=== PATIENT | male | born 1985 | race Caucasian/White ===

== ENCOUNTER 2020-05-18 10:08 | Emergency (ER) | payer BC, OTHER ==
--- NOTE | 2020-05-18 11:03 | EDM.PDOC ---
ED HPI GENERAL MEDICAL PROBLEM - General Chief Complaint: Back Pain or Injury Stated Complaint: BACK PAIN Time Seen by Provider: 05/18/20 10:38 Source of Information: Reports: Patient, RN Notes Reviewed - History of Present Illness INITIAL COMMENTS - FREE TEXT/NARRATIVE: 34 yr old male with low back pain. He had a severe episode about a month ago, had been doing better but than had it flair again yesterday. Was doing some light duty work but nothing real strenuous. feels OK at rest, sharp pain with movment. Does not radiate. No nausea, vomiting, fever or chills. Also has what he thinks is a buldging hernia L lower abd that he has had for about 2 yrs. Has not had that evaluated. Took a left over hydrocodone for his back this AM and that is helping. States "nothing else works when it gets more severe like this" Lower Back Pain Score (Numeric/FACES): 4 - Related Data Allergies Allergy/AdvReac Type Severity Reaction Status Date / Time No Known Allergies Allergy Verified 05/18/20 10:29 Home Meds: Home Meds Acetaminophen/HYDROcodone [[place] 325-5 MG] 1 tab PO Q6H PRN #10 tablet 05/18/20 [Rx] Past Medical History - Past Health History Medical/Surgical History: Denies Medical/Surgical History Social & Family History - Tobacco Use Tobacco Use Status *Q: Never Tobacco User Second Hand Smoke Exposure: No - Caffeine Use Caffeine Use: Reports: Coffee - Recreational Drug Use Recreational Drug Use: No ED ROS GENERAL - Review of Systems Review Of Systems: See Below Constitutional: Denies: Fever, Chills, Diaphoresis HEENT: Reports: No Symptoms Respiratory: Reports: No Symptoms Cardiovascular: Reports: No Symptoms GI/Abdominal: Denies: Nausea, Vomiting : Reports: No Symptoms Musculoskeletal: Reports: Back Pain. Denies: Leg Pain Skin: Reports: No Symptoms Neurological: Reports: No Symptoms ED EXAM,LOWER BACK PAIN/INJURY - Physical Exam Exam: See Below General Appearance: Alert, No Apparent Distress Head: Atraumatic Neck: Supple Respiratory/Chest: No Respiratory Distress, Lungs Clear, Normal Breath Sounds Cardiovascular: Regular Rate, Rhythm GI/Abdominal: Soft, Non-Tender, Other (Does have a buldging mass L lower abd just above the groin minimally tender) (Male) Exam: No: Scrotal Swelling Neurological: Alert, No Motor/Sensory Deficits, Oriented x 3 Skin Exam: Warm, Dry, Normal Color Course - Vital Signs Last Recorded V/S: Last Vital Signs Temp 97.8 F 05/18/20 10:26 Pulse 88 05/18/20 10:26 Resp 16 05/18/20 10:26 BP 153/91 H 05/18/20 10:26 Pulse Ox 97 05/18/20 10:26 Departure - Departure Time of Disposition: 10:58 Disposition: Home, Self-Care 01 Condition: Fair Clinical Impression: Hernia Low back strain Qualifiers: Encounter type: initial encounter Qualified Code(s): S39.012A - Strain of muscle, fascia and tendon of lower back, initial encounter - Discharge Information Prescriptions: Acetaminophen/HYDROcodone [[place] 325-5 MG] 1 tab PO Q6H PRN #10 tablet PRN Reason: Pain Instructions: Muscle Strain, [id number] Referrals: PCP,None [Primary Care Provider] - Forms: ED Department Discharge Additional Instructions: Rest back, avoid heavy lifting as best you can. Ibuprofen or aleve 2 to 3 times daily. You may take tylenol in between doses for extra pain relief or hydr ocodone if needed for severe pain. Prescription has been sent electronically to [facility]. Continue to alternate ice and heat. Consider Physical Therapy if not rapidly getting better. Follow up at our [facility] medical clinic for further eval, treatment of your back discomfort as needed. Call [phone] for appointment as needed. Also call the same number for appointment to see Dr Castillo, General Surgeon regarding what appears to be a L sided hernia. Sepsis Event Note (ED) - Evaluation Sepsis Screening Result: No Definite Risk - Focused Exam Vital Signs: Vital Signs Temp Pulse Resp BP Pulse Ox 05/18/20 10:26 97.8 F 88 16 153/91 H 97
== END 2020-05-18 11:10 | disposition home or self-care (01) ==
LOC: JD.ED 10:08
DX: S39.012A Strain of muscle, fascia and tendon of lower back, initial encounter (principal); K46.9 Unspecified abdominal hernia without obstruction or gangrene; X58.XXXA Exposure to other specified factors, initial encounter
CPT/HCPCS: 99283

== ENCOUNTER 2024-02-29 20:10 | Emergency (ER) | payer BC ==
[2024-02-29] MEDS: Lidocaine 1% 10 ML MDV INJECT ONE (21:14)
== END 2024-02-29 22:20 | disposition home or self-care (01) ==
LOC: JD.ED 20:10
DX: S01.112A Laceration without foreign body of left eyelid and periocular area, initial encounter (principal); W22.8XXA Striking against or struck by other objects, initial encounter
CPT/HCPCS: 12013; 99282; 99283; J3490